=== PATIENT | female | born 1985 | race Caucasian/White ===

== ENCOUNTER 2018-06-14 04:55 | Inpatient (IN) | payer MEDICAID ==
[2018-06-14] MEDS ORDERED: LIDOCAINE 1% (MPF) 30 ML INJ INJ (05:30)
[2018-06-14] MEDS ORDERED: METHYLERGONOVINE 0.2 MG INJ IM (05:30)
[2018-06-14] MEDS ORDERED: MISOPROSTOL 200 MCG TAB PR ×2 (05:30→10:30)
[2018-06-14] MEDS ORDERED: IBUPROFEN 600 MG TAB PO (05:30)
[2018-06-14] MEDS ORDERED: BUTORPHANOL 2 MG INJ IV (05:30)
[2018-06-14] MEDS ORDERED: OXYTOCIN 30 UNITS/LR 500 ML IV ×3 (05:30→10:30)
[2018-06-14] MEDS ORDERED: CARBOPROST 250 MCG INJ IM ×2 (05:30→10:30)
[2018-06-14] MEDS: AMPICILLIN 2 GM/NS (PMX) 100 ML IV (05:52)
[2018-06-14] MEDS: LACTATED RINGER'S 1,000 ML IV ×2 (05:52→13:30)
[2018-06-14 05:54] LABS: ADD MAN DIFF? NO
[2018-06-14 05:57] LABS: BASOPHILS % 0.1 % (0.0-2.0); EOSINOPHILS % 0.5 % (0.0-7.0); HEMATOCRIT 41.4 % (37.0-47.0); HEMOGLOBIN 13.5 g/dl (12.0-16.0); LYMPHOCYTES % 26.7 % (15.0-51.0); MEAN CORPUSCULAR HEMOGLOBIN 28.4 pg (29.0-33.0); MEAN CORPUSCULAR HGB CONC 32.6 g/dl (32.0-37.0); MEAN CORPUSCULAR VOLUME 87.2 fl (82.0-101.0); MONOCYTE # 0.6 10^3/ul (0.3-0.9); MONOCYTES % 8.3 % (0.0-11.0); NEUTROPHIL # 4.9 10^3/ul (1.6-7.5); NEUTROPHILS % 63.9 % (39.0-77.0); PLATELET COUNT 195 10^3/UL (140-415); RED BLOOD COUNT 4.75 10^6/ul (4.20-5.40); RED CELL DISTRIBUTION WIDTH 13.2 % (11.5-14.5)
[2018-06-14 05:57] LABS: WHITE BLOOD COUNT 7.6 10^3/ul (4.8-10.8)
[2018-06-14 06:02] LABS: ADD UMIC YES; UR ASCORBIC ACID NEGATIVE (NEGATIVE); UR BACTERIA FEW /HPF (NONE SEEN); UR BILIRUBIN (Dip) NEGATIVE (NEGATIVE); UR BLOOD (Dip) 1+ mg/dL (NEGATIVE); UR CLARITY CLEAR (CLEAR); UR COLOR STRAW (YELLOW); UR GLUCOSE (Dip) NEGATIVE (NEGATIVE); UR KETONES (Dip) NEGATIVE (NEGATIVE); UR LEUKOCYTE ESTERASE (Dip) NEGATIVE Leu/ul (NEGATIVE); UR NITRITE (Dip) NEGATIVE (NEGATIVE); UR RBC 0 /HPF (0-5); UR SPECIFIC GRAVITY (Dip) 1.005 (1.003-1.030); UR SQUAMOUS EPITHELIAL CELL FEW /HPF (FEW); UR TOTAL PROTEIN (Dip) NEGATIVE (NEGATIVE); UR UROBILINOGEN (Dip) NEGATIVE (NEGATIVE); UR WBC 1 /HPF (0-5)
[2018-06-14 06:17] LABS: PARTIAL THROMBOPLASTIN TIME 26.5 Sec (23.0-35.0)
[2018-06-14 06:34] LABS: INR 0.92; PROTIME 12.5 Sec (11.9-14.9)
[2018-06-14 06:49] LABS: HEPATITIS B SURFACE ANTIGEN NEGATIVE (NEGATIVE)
[2018-06-14] MEDS: AMPICILLIN 1 GM/NS (PMX) 50 ML IV (09:28)
[2018-06-14] MEDS ORDERED: OXYTOCIN 10 UNIT INJ (10:03)
[2018-06-14] MEDS: METHYLERGONOVINE 0.2 MG INJ IM ×2 (10:10→12:09)
[2018-06-14] MEDS ORDERED: ACETAMINOPHEN 325 MG TAB PO (10:30)
[2018-06-14] MEDS ORDERED: NACL 0.9% 3 ML SYG IV (10:30)
[2018-06-14] MEDS ORDERED: ONDANSETRON 4 MG INJ IV (10:30)
[2018-06-14] MEDS ORDERED: OXYCODONE/ASPIRIN (4.88/325) TAB PO (10:30)
[2018-06-14] MEDS: OXYCODONE/ASPIRIN (4.88/325) TAB PO (11:24)
[2018-06-14] MEDS: OXYTOCIN 30 UNITS/LR 500 ML IV ×2 (11:28→13:00)
[2018-06-14] MEDS: IBUPROFEN 600 MG TAB PO ×2 (12:00→17:49)
[2018-06-14] MEDS: WITCH HAZEL/GLYCERIN PAD PR (12:56)
[2018-06-14 19:44] LABS: RAPID PLASMA REAGIN NONREACTIVE (NR)
[2018-06-14] MEDS: SENNA/DOCUSATE NA (8.6MG/50MG) TAB PO (20:59)
[2018-06-15] MEDS: IBUPROFEN 600 MG TAB PO ×4 (00:25→18:46)
[2018-06-15 08:41] LABS: HEMATOCRIT 38.6 % (37.0-47.0); HEMOGLOBIN 12.3 g/dl (12.0-16.0)
[2018-06-15] MEDS: SENNA/DOCUSATE NA (8.6MG/50MG) TAB PO (09:02)
[2018-06-16] MEDS: IBUPROFEN 600 MG TAB PO ×3 (00:01→11:38)
[2018-06-16] MEDS: SENNA/DOCUSATE NA (8.6MG/50MG) TAB PO ×2 (00:01→09:15)
[2018-06-16] MEDS: OXYCODONE/ASPIRIN (4.88/325) TAB PO (09:15)
[2018-06-16] MEDS: LANOLIN HPA 1 PKT TOP (09:27)
== END 2018-06-16 17:10 | disposition home or self-care (01) | DRG 807 ==
LOC: OBT 04:55 → L-D 04:55 → OBT 05:30 → L-D 05:30 → PP1 12:24
PROC: 10E0XZZ Delivery of Products of Conception, External Approach (ICD-10-PCS; principal; 2018-06-14)
DX: O80 Encounter for full-term uncomplicated delivery (principal); Z37.0 Single live birth; Z3A.39 39 weeks gestation of pregnancy
CPT/HCPCS: 76815; 81001; 85014; 85018; 85025; 85610; 85730; 86592; 86850; 86900; 86901; 87340; 99464